=== PATIENT | male | born 1935 | race Caucasian/White ===

== ENCOUNTER 2017-06-06 00:52 | Day surgery (SDC) | payer MEDICARE, OTHER ==
[~2017-06-06 00:52] MED LIST: AMO500 PO; ASP81TEC PO; COZ100 PO; FLAX100031 PO; MELO7.5O PO; MULT-892 PO; NAPR220C11 PO; NITR0.4T SL
[2017-06-06] MEDS ORDERED: Lactated Ringer's 1,000 ML IV SCH (07:45)
[2017-06-06 14:29] VITALS: BP 148/66; PULSE 63; RESP 16; O2SAT 99
[2017-06-06 14:29] LABS: BASOPHILS % (AUTO) 0.1 % (0-3); EOSINOPHILS % (AUTO) 0.3 % (0-5); MONOCYTES % (AUTO) 1.3 % (4-12); Mean Corpuscular Hemoglobin 32.2 pg (27.0-35.0); Mean Corpuscular Volume 92.7 fL (81-100); Platelet Count 151 bil/L (150-400)
[2017-06-06 14:40] LABS: INR 1.02 ratio
--- NOTE | 2017-06-06 14:53 | NUR ---
Admitted for a loop recorder removal following a 3 year period. Patient understands procedure and is here today with his . Both patient and understand plan of care. NSR no ectopy.
--- NOTE | 2017-06-06 14:54 | NUR ---
Critical WBC count called to Dr Sebastian. Pt has a history of CLL.
[2017-06-06] MEDS ORDERED: Sodium Chloride LOK Flush 10 mL Syringe IV ONE (15:14)
[2017-06-06] MEDS ORDERED: 0.9% Sodium Chloride 1,000 ML IV SCH ×2 (15:15→16:45)
[2017-06-06] MEDS ORDERED: Vancomycin 1,000mg/200 mL NS IV ONE (15:17)
[2017-06-06] MEDS ORDERED: Vancomycin Inj 1,000 MG in IV Premix 1 EACH IV ONE (15:20)
[2017-06-06] MEDS ORDERED: fentaNYL-PF 50 mCg/mL 2 mL Inj ONE (15:53)
[2017-06-06] MEDS ORDERED: Heparin 10,000 Unit/1,000 mL NS Premix IV ONE (16:31)
[2017-06-06 16:45] VITALS: BP 162/83; PULSE 68; RESP 16; O2SAT 99
[2017-06-06] MEDS ORDERED: Ondansetron 2 mg/mL 2 mL Inj IVPUSH PRN (16:45)
[2017-06-06 17:00] VITALS: BP 149/67; PULSE 69; RESP 16; O2SAT 99
--- NOTE | 2017-06-06 17:02 | NUR ---
Returned to [facility] following a loop recorder removal. Dressing site is dry and intact - noted a small incision this was sutured for removal of loop recorder. Dr Sebastian has spoken to the patient and to the patient's .
--- NOTE | 2017-06-06 17:12 | PROCED ---
[address] [address] PROCEDURE NOTE PATIENT: IDALIA SAAVEDRA : 1935 MR#: [id number] ADMIT: 06/06/2017 JOB ID: [id number] DATE OF SERVICE: 06/06/2017 PREOPERATIVE DIAGNOSIS(ES): Implantable loop recorder at end of life. POSTOPERATIVE DIAGNOSIS(ES): Implantable loop recorder at end of life. PROCEDURE PERFORMED: Implantable cardiac loop recorder explantation. SURGEON: Errol Sebastian MD CERTIFIED [employer] F[employer]ILITY OPERATOR: Lorraine . SEDATION: Minimal Versed and fentanyl utilized for appropriate level of sedation. INDICATION: This patient is a pleasant, 82-year-old man with syncope who underwent loop recorder implantation three years ago and has remained free of symptoms. His device interrogation had not shown significant dysrhythmia. His device has reached end of life. After discussion of risks and benefits of explantation, he opted to proceed. PROCEDURE DESCRIPTION: Following informed signed consent, the patient was taken to the EP laboratory in a fasting nonsedated state where he was prepped and draped in usual sterile fashion. The left infraclavicular surgical scar was infiltrated with 30 cc of a 50/50 mixture of bupivacaine and lidocaine. Once adequate anesthesia had been achieved, a 1 cm incision was performed overlying the patient's previous surgical scar. Dissection was carried to the capsule and the loop recorder was freed loose of adhesions. It was explanted as was the anchoring suture. The pocket was then copiously irrigated with saline. The incision was then closed with running layers of absorbable suture. The wound was dressed with skin adhesive and a small dressing. At the end of the procedure, needle, sponge, and instrument counts were all correct. COMPLICATIONS: None. ESTIMATED BLOOD LOSS: Negligible. IMPRESSION: Successful loop recorder explantation. PLAN: 1. Recovery and discharge from the [facility]. 2. Wound check in one week in the [facility]. ATTENDING STATEMENT: Errol Sebastian MD, Electrophysiology attending was present for and supervised/performed all aspects of this procedure.
[2017-06-06] MEDS ORDERED: MULT-1018 PO (17:13)
[2017-06-06] MEDS ORDERED: FLAX100038 PO (17:13)
[2017-06-06] MEDS ORDERED: ASPI-973 PO (17:13)
[2017-06-06] MEDS ORDERED: LOSA100T29 PO (17:13)
[2017-06-06] MEDS ORDERED: NITR0.4T6 SL (17:13)
[2017-06-06] MEDS ORDERED: AMOX500C2 PO (17:13)
[2017-06-06] MEDS ORDERED: MELO-259 PO (17:13)
[2017-06-06 17:15] VITALS: BP 148/73; PULSE 68; RESP 16; O2SAT 99
[2017-06-06 17:30] VITALS: BP 139/67; PULSE 68; RESP 16; O2SAT 99
[2017-06-06 17:37] VITALS: BP 141/70; PULSE 68; RESP 16; O2SAT 99
--- NOTE | 2017-06-06 17:56 | NUR ---
Pt discharged to home, ambulatory,accompanied by spouse. Pt's VSS, Lt upper chest dressing CDI, pt given all discharge instructions and had no further questions at time of d/c.
== END 2017-06-06 23:59 | disposition home or self-care (01) ==
LOC: SOUO 00:52
PROVIDERS: ATTEND Internal Medicine Cardiovascular Disease
DX: Z45.09 Encounter for adjustment and management of other cardiac device (principal); R42 Dizziness and giddiness; I10 Essential (primary) hypertension; I25.10 Atherosclerotic heart disease of native coronary artery without angina pectoris; C91.10 Chronic lymphocytic leukemia of B-cell type not having achieved remission; Z95.5 Presence of coronary angioplasty implant and graft
CPT/HCPCS: 33284; 36415; 80048; 85025; 85610; 99152; 99153; J1644; J2250; J3010